=== PATIENT | female | born 1955 | race Hispanic/Latino ===

== ENCOUNTER 2020-10-26 09:17 | Emergency (ER) | payer BC ==
[2020-10-26] MEDS ORDERED: IBUPROFEN 600 MG TAB PO ONE ×2 (09:24)
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
[2020-10-26] MEDS ORDERED: HYDROcodone/ACETAMINOPHEN 5-325 MG TAB PO ONE (10:09)
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
[2020-10-26 12:21] VITALS: BP 136/79
== END 2020-10-26 12:29 | disposition home or self-care (01) ==
LOC: ED 09:17
DX: S16.1XXA Strain of muscle, fascia and tendon at neck level, initial encounter (principal); S52.501A Unspecified fracture of the lower end of right radius, initial encounter for closed fracture; S82.51XA Displaced fracture of medial malleolus of right tibia, initial encounter for closed fracture; S09.90XA Unspecified injury of head, initial encounter; I10 Essential (primary) hypertension; Z90.49 Acquired absence of other specified parts of digestive tract; Z79.899 Other long term (current) drug therapy; Z88.1 Allergy status to other antibiotic agents; V49.9XXA Car occupant (driver) (passenger) injured in unspecified traffic accident, initial encounter; Y93.89 Activity, other specified; Y92.488 Other paved roadways as the place of occurrence of the external cause; Y99.8 Other external cause status
CPT/HCPCS: 70450; 72125